=== PATIENT | female | born 1980 | race Hispanic/Latino ===

== ENCOUNTER 2022-03-17 07:26 | Emergency (ER) | payer OTHER ==
[2022-03-17] MEDS ORDERED: LIDOCAINE VISCOUS 2% SOLN 15 ML UDC ONE (07:51)
[2022-03-17] MEDS ORDERED: MAGNES/ALUMIN/SIMET 30ML UCUP ONE (07:51)
[2022-03-17 07:57] LABS: Absolute Lymphocytes (CBC) 3.7 K/uL (0.7-4.9); Hematocrit 37.3 % (36.0-45.0); Lymphocytes % 38.4 % (15.3-44.8); MCV 87.2 fL (80-100); MPV 9.8 fL (7.6-11.3); RBC Red Blood Cell Count 4.28 M/uL (3.86-4.86)
[2022-03-17 08:15] LABS: Albumin 3.5 g/dL (3.4-5.0); Bilirubin Total 0.4 mg/dL (0.2-1.0); Potassium 3.1 mmol/L (3.5-5.1); Protein, Total 7.5 g/dL (6.4-8.2); Troponin High Sensitivity 6.2 pg/mL (<58.9)
--- NOTE | 2022-03-17 08:26 | RAD REPORT ---
EXAM DESCRIPTION: US - Abdomen Exam Limited - 03/17/2022 7:59 am CLINICAL HISTORY: ABD PAIN COMPARISON: CTANGIO CHEST dated 10/30/2012 FINDINGS: The gallbladder was not visualized. It may be surgically absent or obscured by bowel gas. The common bile duct was not visualized. Partially imaged liver is within normal limits. No intrahepa tic biliary ductal dilatation is identified IMPRESSION: Nonvisualized gallbladder and common bile duct. No intrahepatic biliary ductal dilatatio n. Significant bowel gas noted. Correlate with surgical history as the patient may have had a prior c holecystectomy.
[2022-03-17 08:33] LABS: Urine Blood Trace-intact (Negative); Urine Glucose Negative (Negative); Urine Protein Negative (Negative)
--- NOTE | 2022-03-17 08:55 | RAD REPORT ---
EXAM DESCRIPTION: CTAngio Aorta For Dissection - 03/17/2022 8:38 am CLINICAL HISTORY: abd and chest pain COMPARISON: No comparisons TECHNIQUE: CTA of the chest, abdomen, and pelvis was performed. MIP reconstructions of the aorta wer e performed. All CT scans are performed using dose optimization technique as appropriate and may include automated exposure control or mA/KV adjustment according to patient size. FINDINGS: Thorax: Chest Wall: No abnormal mass Lungs: No acute abnormality. Pleura: No effusions or pneumothorax. Libra/Mediastinum: No lymphadenopathy. Small hiatal hernia with circumferentially thickened distal eso phagus. Aorta/Pulmonary Arteries: Unremarkable Heart: Normal size. Abdomen/Pelvis: Liver: Hepatic steatosis Biliary: No biliary ductal dilatation. Cholecystectomy Stomach: No significant focal abnormality. Duodenum: No significant focal abnormality. Pancreas: No significant abnormality. Spleen: No significant abnormality. Adrenal: No suspicious lesions. Kidney/ureter: No hydronephrosis. No renal calculi. Mild right upper pole renal scarring. Retroperitoneum: No retroperitoneal adenopathy. Vascular: No aneurysm. Bowel: No significant focal abnormality. Normal appendix. Peritoneum: No ascites or free air. Bladder: Grossly unremarkable. Reproductive: No adnexal masses. Arcuate uterus. Probable small degenerated subserosal fibroid Bones: No acute fracture. Other: n/a IMPRESSION: No acute findings within the chest, abdomen, or pelvis. Specifically, no aortic aneurysm , aortic dissection, or pulmonary embolus. Incidental findings as noted above.
--- NOTE | 2022-03-17 09:07 | ER ---
Nurse's Notes [facility] Name: Magui Garcia Age: 41 yrs Sex: Female : 1980 Arrival Date: 03/17/2022 Time: 07:28 Bed 6 Private MD: Diagnosis: Upper abdominal pain, unspecified;UTI/ Urinary tract infection, site not specified Presentation: 03/17 07:22 Chief complaint: EMS states: Patient ate some spicey food last night and she is not jg9 supposed to eat spicey food and this morning she is reporting epigastric pain, intermittent and sharp, 8/10 with some sob reported, pain is reproducible when palpated. HX of GI surgery but patient does not know what the surgery was. Coronavirus screen: Vaccine status: Patient reports receiving the 2nd dose of the covid vaccine. Ebola Screen: Patient negative for fever greater than or equal to 101.5 degrees Fahrenheit, and additional compatible Ebola Virus Disease symptoms Patient denies exposure to infectious person. Patient denies travel to an Ebola-affected area in the 21 days before illness onset. Initial Sepsis Screen: Does the patient meet any 2 criteria? Does the patient have a suspected source of infection? No. Patient's initial sepsis screen is negative. Risk Assessment: Do you want to hurt yourself or someone else? Patient reports no desire to harm self or others. Onset of symptoms was March 17, 2022. 07:22 Method Of Arrival: EMS: [facility] jg9 07:22 Acuity: JACQUIE 3 jg9 Triage Assessment: 07:25 General: Appears uncomfortable, Behavior is calm, cooperative. Pain: Complains of pain jg9 in diaphragm and xiphoid area Pain currently is 8 out of 10 on a pain scale. GI: Abdomen is flat, Bowel sounds present X 4 quads. Abd is soft X 4 quads Abdomen is tender to palpation in umbilical area, right upper quadrant and left upper quadrant. GI: Reports Pain is 8 out of 10 on a pain scale. GI: Reports indigestion, Patient currently denies diarrhea, nausea, vomiting. : No deficits noted. Derm: No deficits noted. Musculoskeletal: No deficits noted. [employer]: 07:35 LMP 03/13/2022 j9 Historical: - Allergies: 07:32 No Known Allergies; jg9 - Home Meds: 07:32 None [Active]; jg9 - PMHx: 07:32 pre diabetes; jg9 - PSHx: 07:32 gi-details unknown; jg9 - Immunization history:: Adult Immunizations Client reports receiving the 2nd dose of the Covid vaccine, Last tetanus immunization: Pneumococcal vaccine status is unknown, Flu vaccine is up to date. - Social history:: Smoking status: Patient denies any tobacco usage or history of. - Family history:: not pertinent. - Hospitalizations: : No recent hospitalization is reported. Screenin:35 Abuse screen: Denies threats or abuse. Denies injuries from another. Nutritional jg9 screening: patient is very thin reports she has been this way all her life. Tuberculosis screening: No symptoms or risk factors identified. Fall Risk None identified. Assessment: 08:22 Reassessment: Patient and/or family updated on plan of care and expected duration. Pain jg9 level reassessed. Patient is alert, oriented x 3, equal unlabored respirations, skin warm/dry/pink. patient up to bathroom to provide urine sample Patient states feeling better. Patient states symptoms have improved. 09:15 Reassessment: Patient appears in no apparent distress at this time. Patient and/or ss family updated on plan of care and expected duration. Pain level reassessed. Patient denies pain at this time. Patient states feeling better. Patient states symptoms have improved. Vital Signs: 07:22 BP 89 / 75; Pulse 77; Resp 15 S; Temp 97.7(A); Pulse Ox 100% on R/A; Weight 34.02 kg jg9 (R); Height 3 ft. 5 in. (104.14 cm) (R); Pain 8/10; 07:45 BP 99 / 76; Pulse 91; Resp 20 S; Pulse Ox 100% on R/A; jg9 08:00 BP 99 / 74; Pulse 75; Resp 17 S; Pulse Ox 100% on R/A; jg9 07:22 Body Mass Index 31.37 (34.02 kg, 104.14 cm) j9 ED Course: 07:25 Arm band placed on right wrist. jg9 07:28 Patient arrived in ED. rn 07:28 Jorge Edwards MD is Attending Physician. rn 07:28 Smith, Isabell, RN is Primary Nurse. jg9 07:31 Triage completed. jg9 07:36 Patient has correct armband on for positive identification. Bed in low position. Call jg9 light in reach. Side rails up X 1. 07:43 EKG done, by ED staff, reviewed by Jorge Edwards MD. Initial lab(s) drawn, by ri, sent to [facility] lab. Inserted saline lock: 22 gauge in right antecubital area, using aseptic technique. Blood collected. 08:00 Abdomen Limited US In Process Unspecified. EDMS 08:40 CT Aorta for Dissection In Process Unspecified. EDMS 09:15 No provider procedures requiring assistance completed. IV discontinued, intact, ss bleeding controlled, No redness/swelling at site. Pressure dressing applied. Administered Medications: 07:45 Drug: GI Cocktail without - (Maalox Suspension 30 ml, Lidocaine Liquid 2 % 15 jg9 ml) Route: PO; 08:28 Follow up: Response: No adverse reaction; Pain is decreased jg9 Medication: 09:15 VIS not applicable for this client. Point of Care Testing: Urine : 08:35 hCG Reading: Negative; Control Reading: Positive; jg9 Outcome: 09:07 Discharge ordered by . rn 09:15 Discharged to home ambulatory. 09:15 Condition: good 09:15 Discharge instructions given to patient, Instructed on discharge instructions, follow up and referral plans. medication usage, Demonstrated understanding of instructions, follow-up care, medications, Prescriptions given X 2. 09:16 Patient left the ED. Signatures: Dispatcher [employer] [facility] Jorge Edwards MD MD rn Martinez, Eric [facility] Mariana Gee RN RN Isabell Smith RN RN jg9
--- NOTE | 2022-03-17 09:07 | EDPHYS ---
Physician Documentation [facility] Name: Magui Garcia Age: 41 yrs Sex: Female : 1980 Arrival Date: 03/17/2022 Time: 07:28 Bed 6 Private MD: ED Physician Jorge Edwards HPI: 03/17 07:31 This 41 yrs old Female presents to ER via EMS with complaints of Epigastric rn Pain. 07:31 The patient presents with abdominal pain in the epigastric area. Onset: The rn symptoms/episode began/occurred this morning. The symptoms radiate to chest. Associated signs and symptoms: Pertinent negatives: blood in stools, fever, shortness of breath. The symptoms are described as achy. Modifying factors: The symptoms are alleviated by nothing, the symptoms are aggravated by nothing. Severity of pain: At its worst the pain was moderate in the emergency department the pain has improved. The patient has not experienced similar symptoms in the past. The patient has not recently seen a physician. Pt reports epigastric abd pain that radiates to chest, began last night/this AM, shortly after eating spicy food. Denies sob. No cough. No fever/vomiting/diarrhea. . [employer]: 07:35 LMP 03/13/2022 jg9 Historical: - Allergies: 07:32 No Known Allergies; jg9 - Home Meds: 07:32 None [Active]; jg9 - PMHx: 07:32 pre diabetes; jg9 - PSHx: 07:32 gi-details unknown; jg9 - Immunization history:: Adult Immunizations Client reports receiving the 2nd dose of the Covid vaccine, Last tetanus immunization: Pneumococcal vaccine status is unknown, Flu vaccine is up to date. - Social history:: Smoking status: Patient denies any tobacco usage or history of. - Family history:: not pertinent. - Hospitalizations: : No recent hospitalization is reported. ROS: 07:31 Constitutional: Negative for fever, chills, and weight loss, Eyes: Negative for injury, rn pain, redness, and discharge, Neck: Negative for injury, pain, and swelling, Cardiovascular: Negative for palpitations, and edema, Respiratory: Negative for shortness of breath, cough, wheezing, and pleuritic chest pain, Abdomen/GI: Negative for nausea, vomiting, diarrhea, and constipation, Back: Negative for injury and pain, MS/Extremity: Negative for injury and deformity, Skin: Negative for injury, rash, and discoloration, Neuro: Negative for headache, weakness, numbness, tingling, and seizure. Exam: 07:31 Constitutional: Very thin/small female, no acute distress. Head/Face: Normocephalic, rn atraumatic. Cardiovascular: Regular rate and rhythm. No pulse deficits. Respiratory: No increased work of breathing, no retractions or nasal flaring. Abdomen/GI: soft, + tender epigstrium, no rebound or guarding Skin: Warm, dry MS/ Extremity: Pulses equal, no cyanosis. Neuro: Awake and alert, GCS 15 07:38 ECG was reviewed by the Attending Physician. rn Vital Signs: 07:22 BP 89 / 75; Pulse 77; Resp 15 S; Temp 97.7(A); Pulse Ox 100% on R/A; Weight 34.02 kg j9 (R); Height 3 ft. 5 in. (104.14 cm) (R); Pain 8/10; 07:45 BP 99 / 76; Pulse 91; Resp 20 S; Pulse Ox 100% on R/A; jg9 08:00 BP 99 / 74; Pulse 75; Resp 17 S; Pulse Ox 100% on R/A; jg9 07:22 Body Mass Index 31.37 (34.02 kg, 104.14 cm) 9 MDM: 07:28 Patient medically screened. rn 09:05 Differential diagnosis: cholecystitis, Cholelithiasis, gastritis, gastroesophageal rn reflux disease, non-specific abd pain, pancreatitis, Peptic Ulcer Disease, Perf. Duodenal Ulcer, Perf. Gastric Ulcer. Data reviewed: vital signs, nurses notes, lab test result(s), radiologic studies, CT scan, ultrasound, and as a result, I will discharge patient. Counseling: I had a detailed discussion with the patient and/or guardian regarding: the historical points, exam findings, and any diagnostic results supporting the discharge/admit diagnosis, lab results, radiology results, the need for outpatient follow up, to return to the emergency department if symptoms worsen or persist or if there are any questions or concerns that arise at home. Response to treatment: the patient's symptoms have markedly improved after treatment, and as a result, I will discharge patient. Special discussion: Based on the patient's history, exam, and Dx evaluation, there is no indication for emergent intervention or inpatient Tx. It is understood by the patient/guardian that if the Sx's persist or worsen they need to return immediately for re-evaluation. Based on the patient's Hx, exam, and Dx evaluation, there is no indication for emergent surgery or inpatient Tx. It is understood by the patient/guardian that if the Sx's persist or worsen they need to return immediately for re-evaluation. I discussed with the patient/guardian in detail that at this point there is no indication for admission to the hospital. It is understood, however, that if the symptoms persist or worsen the patient needs to return immediately for re-evaluation. ED course: No acute findings on ct chest/abdomen/pelvis. Trop neg. ECG normal.. 03/17 07:30 Order name: CBC with Diff; Complete Time: 08:15 rn 03/17 07:30 Order name: CMP; Complete Time: 08:15 rn 03/17 07:30 Order name: Lipase; Complete Time: 08:15 rn 03/17 07:30 Order name: Troponin High Sensitivity; Complete Time: 08:15 rn 03/17 08:33 Order name: Urine Dipstick-Ancillary; Complete Time: 08:34 EDMS 03/17 07:30 Order name: IV Start; Complete Time: 07:43 rn 03/17 07:30 Order name: Abdomen Limited US; Complete Time: 08:34 rn 03/17 07:30 Order name: Labs collected and sent; Complete Time: 07:42 rn 03/17 07:30 Order name: Urine Dipstick-Ancillary (obtain specimen); Complete Time: 08:34 rn 03/17 07:30 Order name: CT Aorta for Dissection; Complete Time: 09:03 rn 03/17 07:31 Order name: EKG; Complete Time: 07:32 rn 03/17 08:37 Order name: Urine --Ancillary (enter results); Complete Time: 09:03 bd 03/17 07:30 Order name: Urine Test (obtain specimen); Complete Time: 08:34 rn 03/17 07:31 Order name: EKG - Nurse/Tech; Complete Time: 07:32 rn 03/17 07:31 Order name: Cardiac monitoring; Complete Time: 07:32 rn EC:38 Rate is 84 beats/min. Rhythm is regular. Right axis deviation noted. QRS is positive in rn lead aVF and negative in lead I. QRS interval is normal. QT interval is normal. No Q waves. T waves are Normal. No ST changes noted. Clinical impression: NSR w/ Non-specific ST/T Changes. Interpreted by me. Reviewed by me. Administered Medications: 07:45 Drug: GI Cocktail without - (Maalox Suspension 30 ml, Lidocaine Liquid 2 % 15 jg9 ml) Route: PO; 08:28 Follow up: Response: No adverse reaction; Pain is decreased jg9 Point of Care Testing: Urine : 08:35 hCG Reading: Negative; Control Reading: Positive; jg9 Disposition Summary: 03/17/22 09:07 Discharge Ordered Location: Home rn Problem: new rn Symptoms: have improved rn Condition: Stable rn Diagnosis - Upper abdominal pain, unspecified rn - UTI/ Urinary tract infection, site not specified rn Followup: rn - With: Private Physician - When: As needed - Reason: Recheck today's complaints, Re-evaluation by your physician Discharge Instructions: - Discharge Summary Sheet rn - Abdominal Pain, Adult rn - Urinary Tract Infection, Adult rn Forms: - Medication Reconciliation Form rn - Thank You Letter rn - Antibiotic rn cardiovascular - Prescription Opioid Use rn Prescriptions: - Protonix 40 mg Oral Tablet - take 1 tablet by ORAL route once daily; 30 tablet; Refills: 0, Product rn Selection Permitted - Cipro 500 mg Oral Tablet - take 1 tablet by ORAL route every 12 hours for 7 days; 14 tablet; Refills: 0, rn Product Selection Permitted Signatures: Dispatcher [employer] [facility] Jorge Edwards MD MD rn Gilmore, Jennifer RN RN jg9 Corrections: (The following items were deleted from the chart) 07:32 07:31 BASIC METABOLIC PANEL+C.LAB.BRZ ordered. EDCA EDMS
[2022-03-17 09:22] VITALS: O2SAT 100
[2022-03-17 09:25] VITALS: BP 99/74
--- NOTE | 2022-03-18 13:53 | EKG ---
Test Date: 2022-03-17 Test Time: 07:32:28 Truck Driving: MEASUREMENT RESULTS: Intervals: Rate: 84 KS: 104 QRSD: 64 QT: 400 QTc: 472 [place]: P: 53 KS: 104 QRS: 100 T: 60 INTERPRETIVE STATEMENTS: Sinus rhythm with short KS Rightward axis Borderline ECG Compared to ECG 10/31/2012 11:57:41 Right-axis deviation now present Sinus arrhythmia no longer present Electronically Signed On 03-18-22 13:50:40 CDT by Mick Galvan
== END 2022-03-17 09:16 | disposition home or self-care (01) ==
LOC: ER 07:26
DX: N39.0 Urinary tract infection, site not specified (principal)
CPT/HCPCS: 93005; 85025; 36415; 81025; 81003; 84484; 83690; 80053; 71275; 74175; 76705; 99284; Q9967

== ENCOUNTER 2022-12-04 04:49 | Emergency (ER) | payer OTHER ==
--- NOTE | 2022-12-04 06:39 | EDPHYS ---
Physician Documentation [facility] Name: Magui Garcia Age: 42 yrs Sex: Female : 1980 Arrival Date: 12/04/2022 Time: 04:49 Bed 6 Private MD: ED Physician Jhonathan Han HPI: 12/04 06:34 This 42 yrs old Female presents to ER via EMS with complaints of sweallowed jes tylenol wrong. 06:34 The patient presents to the emergency department with nausea, that is mild. Onset: The jes symptoms/episode began/occurred yesterday, last night. Possible causes: swallowed tylenol wrong. The symptoms are aggravated by nothing. Associated signs and symptoms: The patient has no apparent associated signs or symptoms. Severity of symptoms: At their worst the symptoms were mild. The patient has not experienced similar symptoms in the past. Historical: - Allergies: 05:12 No Known Allergies; jj7 - PMHx: 05:12 Diabetes mellitus; jj7 - PSHx: 05:12 gi-details unknown; jj7 - Immunization history:: Adult Immunizations unknown, . - Social history:: Smoking status: Patient reports the use of cigarette tobacco products, denies chronic smoking, but will smoke occasionally, Patient uses alcohol, occasionally. Patient/guardian denies using street drugs. ROS: 06:35 Constitutional: Negative for fever, chills, and weight loss, Eyes: Negative for injury, jes pain, redness, and discharge, Neck: Negative for injury, pain, and swelling, Cardiovascular: Negative for chest pain, palpitations, and edema, Respiratory: Negative for shortness of breath, cough, wheezing, and pleuritic chest pain, Abdomen/GI: Negative for abdominal pain, nausea, vomiting, diarrhea, and constipation, Back: Negative for injury and pain, : Negative for injury, bleeding, discharge, and swelling, MS/Extremity: Negative for injury and deformity, Skin: Negative for injury, rash, and discoloration, Neuro: Negative for headache, weakness, numbness, tingling, and seizure, Psych: Negative for depression, anxiety, suicide ideation, homicidal ideation, and hallucinations, Allergy/Immunology: Negative for hives, rash, and allergies, Endocrine: Negative for neck swelling, polydipsia, polyuria, polyphagia, and marked weight changes, Hematologic/Lymphatic: Negative for swollen nodes, abnormal bleeding, and unusual bruising. 06:35 ENT: Positive for sore throat. Exam: 06:35 Constitutional: This is a well developed, well nourished patient who is awake, alert, jes and in no acute distress. Head/Face: Normocephalic, atraumatic. Eyes: Pupils equal round and reactive to light, extra-ocular motions intact. Lids and lashes normal. Conjunctiva and sclera are non-icteric and not injected. Cornea within normal limits. Periorbital areas with no swelling, redness, or edema. Neck: Trachea midline, no thyromegaly or masses palpated, and no cervical lymphadenopathy. Supple, full range of motion without nuchal rigidity, or vertebral point tenderness. No Meningismus. Chest/axilla: Normal chest wall appearance and motion. Nontender with no deformity. No lesions are appreciated. Cardiovascular: Regular rate and rhythm with a normal S1 and S2. No gallops, murmurs, or rubs. Normal PMI, no JVD. No pulse deficits. Respiratory: Lungs have equal breath sounds bilaterally, clear to auscultation and percussion. No rales, rhonchi or wheezes noted. No increased work of breathing, no retractions or nasal flaring. Abdomen/GI: Soft, non-tender, with normal bowel sounds. No distension or tympany. No guarding or rebound. No evidence of tenderness throughout. Back: No spinal tenderness. No costovertebral tenderness. Full range of motion. Skin: Warm, dry with normal turgor. Normal color with no rashes, no lesions, and no evidence of cellulitis. MS/ Extremity: Pulses equal, no cyanosis. Neurovascular intact. Full, normal range of motion. Neuro: Awake and alert, GCS 15, oriented to person, place, time, and situation. Cranial nerves II-XII grossly intact. Motor strength 5/5 in all extremities. Sensory grossly intact. Cerebellar exam normal. Normal gait. Psych: Awake, alert, with orientation to person, place and time. Behavior, mood, and affect are within normal limits. 06:35 ENT: Posterior pharynx: Airway: normal, no evidence of obstruction, Uvula: normal, midline, non-edematous, no erythema, swelling, is not appreciated, erythema, that is mild, exudate, is not appreciated, epiglottis seen and is normal, not swolloen. 07:00 ECG was reviewed by the Attending Physician. [facility] Vital Signs: 04:57 BP 102 / 65; Pulse 71; Resp 17; Temp 98.1; Pulse Ox 100% on R/A; Weight 26.6 kg; Height jj7 54 in. ; 06:00 BP 89 / 66; Pulse 60; Resp 17; Pulse Ox 100% ; jj7 06:43 BP 106 / 93; Pulse 66; Resp 20; Pulse Ox 100% ; jj7 04:57 Body Mass Index 14.14 (26.60 kg, 137.16 cm) j7 MDM: 06:00 Patient medically screened. [facility] 06:39 Differential diagnosis: Allergic rhinitis, apthous ulcer, Nonspecific abd pain, viral jes gastroenteritis, gastroenteritis. Data reviewed: vital signs, nurses notes, radiologic studies, plain films. Consideration of Admission/Observation Escalation of care including admission/observation considered. I considered the following discharge prescriptions or medication management in the emergency department Medications were administered in the Emergency Department. See MAR. Test considered but Not performed: Labs: no cbc, no comp met. Care significantly affected by the following chronic conditions: Diabetes. Counseling: I had a detailed discussion with the patient and/or guardian regarding: the historical points, exam findings, and any diagnostic results supporting the discharge/admit diagnosis, radiology results, the need for outpatient follow up, for definitive care, an ENT specialist, a family practitioner. 12/04 05:04 Order name: Neck Soft Tissue XRAY kl 12/04 06:33 Order name: EKG; Complete Time: 06:34 [facility] 12/04 06:33 Order name: PO challenge; Complete Time: 06:50 [facility] 12/04 06:33 Order name: EKG - Nurse/Tech; Complete Time: 06:43 [facility] EC:00 Rate is 62 beats/min. Rhythm is regular. VT interval is normal. QRS interval is normal. [facility] QT interval is normal. No Q waves. T waves are Normal. No ST changes noted. Clinical impression: NSR w/ Non-specific ST/T Changes and No evidence of ischemia. Interpreted by me. Reviewed by me. Administered Medications: 06:43 Drug: GI Cocktail without - (Maalox PO Suspension 30 ml, Lidocaine Mucous jj7 Membrane Liquid 2 % 15 ml) Route: PO; 06:50 Follow up: Response: No adverse reaction jj7 Disposition Summary: 12/04/22 06:38 Discharge Ordered Location: Home [facility] Problem: new jes Symptoms: have improved jes Condition: Stable jes Diagnosis - Acute pharyngitis, unspecified jes Followup: jes - With: Private Physician - When: 1 - 2 days - Reason: Recheck today's complaints, Continuance of care, Re-evaluation by your physician Followup: jes - With: Mikki Jaramillo MD - When: 2 - 3 days - Reason: Recheck today's complaints, Re-evaluation by your physician Discharge Instructions: - Discharge Summary Sheet jes - Pharyngitis jes - Sore Throat jes Forms: - Medication Reconciliation Form jes - Thank You Letter jes - Antibiotic Education jes - Prescription Opioid Use jes Prescriptions: - Maalox Maximum Strength 400-400-40 mg/5 mL Oral suspension - take 15 milliliter by ORAL route 3 times per day; 250 milliliter; Refills: 0, jes Product Selection Permitted Signatures: Dispatcher [employer] Jhonathan Barboza MD MD cha Johnson, Juwairiyah RN RN jj7 Corrections: (The following items were deleted from the chart) 05:13 05:12 PMHx: Pre Diabetes; jj7 jj7
--- NOTE | 2022-12-04 06:39 | ER ---
Nurse's Notes [facility] Name: Magui Garcia Age: 42 yrs Sex: Female : 1980 Arrival Date: 12/04/2022 Time: 04:49 Bed 6 Private MD: Diagnosis: Acute pharyngitis, unspecified Presentation: 12/04 04:57 Chief complaint: Patient states: TYLENOL STUCK IN HER THROAT. PT STATES SHE HAD A jj7 HEADACHE AND GOT UP TO TAKE A TYLENOL AND NOW IT'S STUCK IN HER THROAT. EMS states: EMS STATES PT WAS ABLE TO DRINK WATER EASILY. NO DROOLING. CAN COUGH WITH EASE. NO SOB AND O2 SAT WAS WNL. Coronavirus screen: At this time, the client does not indicate any symptoms associated with coronavirus-19. Ebola Screen: No symptoms or risks identified at this time. Initial Sepsis Screen: Does the patient meet any 2 criteria? No. Patient's initial sepsis screen is negative. Does the patient have a suspected source of infection? No. Patient's initial sepsis screen is negative. Risk Assessment: Do you want to hurt yourself or someone else? Patient reports no desire to harm self or others. Onset of symptoms was December 04, 2022. 04:57 Method Of Arrival: EMS: [facility] 04:57 Acuity: JACQUIE 4 jj7 Triage Assessment: 04:57 General: Appears in no apparent distress. uncomfortable, malnourished. General: jj7 Behavior is calm, cooperative, appropriate for age. Pain: Complains of pain in neck. Historical: - Allergies: 05:12 No Known Allergies; jj7 - PMHx: 05:12 Diabetes mellitus; jj7 - PSHx: 05:12 gi-details unknown; jj7 - Immunization history:: Adult Immunizations unknown, . - Social history:: Smoking status: Patient reports the use of cigarette tobacco products, denies chronic smoking, but will smoke occasionally, Patient uses alcohol, occasionally. Patient/guardian denies using street drugs. Screenin:57 [facility] ED Fall Risk Assessment (Adult) History of falling in the last 3 months, jj7 including since admission No falls in past 3 months (0 pts) Confusion or Disorientation No (0 pts) Intoxicated or Sedated No (0 pts) Impaired Gait No (0 pts) Mobility Assist Device Used No (0 pt) Altered Elimination No (0 pt) Score/Fall Risk Level 0 - 2 = Low Risk Oriented to surroundings, Maintained a safe environment. Abuse screen: Denies threats or abuse. Nutritional screening: PT IS VERY THIN LESS THAN 60LB. 04:57 Tuberculosis screening: No symptoms or risk factors identified. jj7 Assessment: 04:57 Reassessment: SEE TRIAGE ASSESSMENT. jj7 Vital Signs: 04:57 BP 102 / 65; Pulse 71; Resp 17; Temp 98.1; Pulse Ox 100% on R/A; Weight 26.6 kg; Height jj7 54 in. ; 06:00 BP 89 / 66; Pulse 60; Resp 17; Pulse Ox 100% ; jj7 06:43 BP 106 / 93; Pulse 66; Resp 20; Pulse Ox 100% ; jj7 04:57 Body Mass Index 14.14 (26.60 kg, 137.16 cm) jj7 ED Course: 04:53 Patient arrived in ED. oe 04:57 Arm band placed on right wrist. Patient placed in an exam room, on a stretcher. jj7 04:57 Patient has correct armband on for positive identification. Bed in low position. Call j7 light in reach. 05:07 Yuliana Nuñez RN is Primary Nurse. jj7 05:12 Triage completed. jj7 05:30 Neck Soft Tissue XRAY In Process Unspecified. EDMS 06:00 Jhonathan Han MD is Attending Physician. jes 06:41 Mikki Jaramillo MD is Referral Physician. [facility] 06:43 No provider procedures requiring assistance completed. Patient did not have IV access jj7 during this emergency room visit. 06:58 Primary Nurse role handed off by Yuliana Nuñez RN kl Administered Medications: 06:43 Drug: GI Cocktail without - (Maalox PO Suspension 30 ml, Lidocaine Mucous jj7 Membrane Liquid 2 % 15 ml) Route: PO; 06:50 Follow up: Response: No adverse reaction jj7 Medication: 04:57 VIS not applicable for this client. jj7 Outcome: 06:38 Discharge ordered by . [facility] 06:47 Discharged to home ambulatory. j7 06:47 Condition: improved 06:47 Discharge instructions given to patient, Instructed on discharge instructions, medication usage, Demonstrated understanding of instructions, medications, Prescriptions given X 1. 06:51 Patient left the ED. jj7 07:11 Patient left the ED. jj7 Signatures: Dispatcher [employer] EDTrisha Cartwright, RN Jhonathan Larkin MD MD cha Espinosa, Orlando oe Johnson, Juwairiyah, RN RN jj7 Corrections: (The following items were deleted from the chart) 05:13 05:12 PMHx: Pre Diabetes; j7 jj7 05:15 05:12 General: Appears in no apparent distress. uncomfortable, malnourished, j7 jj7 05:15 05:12 General: Behavior is calm, cooperative, appropriate for age, j7 jj7 05:15 05:12 Pain: Complains of pain in neck j7 jj7
[2022-12-04] MEDS ORDERED: MAGNES/ALUMIN/SIMET 30ML UCUP ONE (06:47)
[2022-12-04] MEDS ORDERED: LIDOCAINE VISCOUS 2% SOLN 15 ML UDC ONE (06:48)
[2022-12-04 06:57] VITALS: TEMP 98.1; O2SAT 100
[2022-12-04 07:00] VITALS: BP 106/93
--- NOTE | 2022-12-04 10:58 | RAD REPORT ---
EXAM DESCRIPTION: RAD - Neck Soft Tissue - 12/04/2022 5:28 am CLINICAL HISTORY: 42 years Female FOREIGN BODY TECHNIQUE: 2 x-ray views of the soft tissues of the neck were performed on 12/04/2022 at 5:18 AM. COMPARISON: None FINDINGS: The adenoids appear normal without occlusion of the nasopharyngeal airway. The palatine tonsils are not enlarged. The epiglottis and aryepiglottic folds appear normal. The subglottic airway appears normal without symmetric or asymmetric edema. No debris is identified within the tr achea. No foreign body is identified. No prevertebral soft tissue swelling is present. No acute osseous abnormalities are identified. IMPRESSION: Normal soft tissue examination of the neck. No radiopaque foreign body is identified. Electronically signed by: Yanet Miller DO 12/04/2022 5:46 AM CDT Due to temporary technical issues with the PACS/Fluency reporting system, reports are being signed by the in house radiologists without review as a courtesy to insure prompt reporting. The interpreting radiologist is fully responsible for the content of the report.
--- NOTE | 2022-12-05 05:36 | EKG ---
Test Date: 2022-12-04 Test Time: 06:47:04 Carpet Or Rug Layer Helper: HEATHER MEASUREMENT RESULTS: Intervals: Rate: 62 ND: 106 QRSD: 68 QT: 434 QTc: 440 [place]: P: 62 ND: 106 QRS: 93 T: 76 INTERPRETIVE STATEMENTS: Sinus rhythm with short ND Otherwise normal ECG Compared to ECG 03/17/2022 07:32:28 Right-axis deviation no longer present Electronically Signed On 12-05-22 05:33:16 CDT by Anshul Gamez
== END 2022-12-04 07:11 | disposition home or self-care (01) ==
LOC: ER 04:49
DX: J02.9 Acute pharyngitis, unspecified (principal); F17.210 Nicotine dependence, cigarettes, uncomplicated
CPT/HCPCS: 70360; 93005; 99284